=== PATIENT | male | born 1980 | race Caucasian/White ===

== ENCOUNTER 2017-01-02 19:55 | Emergency (ER) | payer SELFPAY ==
[~2017-01-02] VITALS: Ht 172.7 cm; Wt 89.0 kg
[2017-01-02 19:59] VITALS: BP 137/80; PULSE 110; RESP 16; TEMP 98.7; O2SAT 97
--- NOTE | 2017-01-02 20:47 | PD ---
Physical Exam Date Seen by Provider: Jan 02, 2017 Time Seen by Provider: 20:44 Data Data Last Documented VS Vital Signs Date Time Temp Pulse Resp B/P Pulse Ox O2 Delivery O2 Flow Rate FiO2 01/02/17 19:59 98.7 110 16 137/80 97 Room Air MDM Supervised Visit with ELLIS: No Narrative Course 36 YO M with complaint of blood in the stool x 3 days. Also complains of multiple wounds of face, arm , leg. Patients states "I think I have a staph infection." Vitals reviewed. Patient seen in triage, awaiting bed placement. Ana Coats Jan 02, 2017 20:47
[2017-01-02] MEDS ORDERED: SODIUM CHLOR 0.9% 1000 ML INJ 1,000 ML IV ONE (21:45)
--- NOTE | 2017-01-02 21:46 | PD ---
HPI Chief Complaint: Bleeding Time Seen by Provider: 21:40 Travel History International Travel<30 days: No Contact w/Intl Traveler<30days: No Traveled to known affect area: No History of Present Illness HPI The patient is a 36 year old male who presents to the [facility] emergency department with a history of reportedly not feeling well over the last week. The patient reports that a week ago he began to have a sore throat and a dry cough. The patient reports that he also noticed that he was developing 3 spots on his skin that are similar to when he had a staph skin infection in the past. He has one spot on the right posterior ankle, one on the left side of his chin , and one on the right arm. He denies him being itchy or draining. He denies having any trauma to the area. The patient additionally reports that over the last 2 days he's had blood in his stool. He reports that he's had diarrhea associated with this 2-3 times per day for the last 2 days. He reports having nausea with a subjective fever. He reports having chills. He reports having a generalized abdominal discomfort associated with this. On review of systems, the patient denies any neck pain, chest pain, shortness of breath, urinary symptoms, or neurologic symptoms. [facility] Past Medical History Narrative Medical The patient's past medical history is reportedly significant for a staph skin infection last a year ago. The patient on further questioning reports that he has been told that his liver enzymes are elevated in the past. He has not followed up regarding this. He reports that he does have a prior history of IV drug use. Medical History: Denies Significant Hx Past Surgical History Narrative Surgical The patient's past surgical history is significant for left ankle ORIF. Social History Alcohol Use: Yes (OCC) Tobacco Use: Yes (1 PPD ) Substance Use: No Allergies-Medications (Allergen,Severity, Reaction): Coded Allergies: No Known Allergies (Unverified , 01/02/17) Reported Meds & Prescriptions Reported Meds & Active Scripts Active Bactroban Topical (Mupirocin) 22 Gm Cream 1 Applic TOPICAL TID 10 Days Review of Systems Except as stated in HPI: all other systems reviewed are Neg General / Constitutional: Positive: Fever, Chills Eyes: No: Visual changes HENT: Positive: Sore Throat, Congestion, No: Headaches Cardiovascular: No: Chest Pain or Discomfort Respiratory: Positive: Cough, No: Shortness of Breath Gastrointestinal: Positive: Nausea, Diarrhea, Abdominal Pain, Hematochezia, Changes in Bowel Habits, No: Vomiting, Hematemesis, Constipation, Indigestion, Loss of Appetite Genitourinary: No: Dysuria Musculoskeletal: No: Pain Skin: Positive Rash Neurologic: No: Weakness Psychiatric: No: Depression Endocrine: No: Polydipsia Hematologic/Lymphatic: No: Easy Bruising Physical Exam Narrative General: The patient is a well-developed well-nourished male in no acute this distress. Head and Neck exam: Head is normocephalic atraumatic. Eyes: EOMI, pupils are equal round and reactive to light. Nose: Midline septum with pink mucous membranes Mouth: Dentition unremarkable. Moist mucus membranes. Posterior oropharynx is mildly erythematous. No tonsillar hypertrophy. No exudates. Uvula midline. Airway patent. Neck: No palpable lymphadenopathy. No nuchal rigidity. No thyromegaly. Cardiovascular: Sinus tachycardia in the low 100s without murmurs, gallops, or rubs. No pulse deficit to the extremities and simultaneous auscultation and palpation of his radial artery. Lungs: Clear to auscultation bilaterally. No wheezes, rhonchi, or rales. Abdomen: Soft, with reported discomfort on palpation of bilateral lower quadrants of the abdomen. No other tenderness on palpation of the other quadrants No guarding, rebound, or rigidity. Negative Martin sign. Normal bowel sounds are audible. No point tenderness over McBurney's point. Extremities: No clubbing, cyanosis, or edema. 2+ pulses in all 4 extremities. No calf tenderness on palpation. Back: No spinous process tenderness to palpation. No costovertebral angle tenderness to palpation. Neurologic Exam: Grossly nonfocal. Skin Exam: The patient has 3 areas of skin abrasion noted that is superficial without any drainage. One is along the posterior aspect of the right ankle, 1 along the lateral aspect of the right upper arm above the elbow, and another on the left side of the chin. There is no honey-colored crusting. There is no pointing, edema, or warmth on palpation. RECTAL EXAM: No masses or tenderness, stool is brown. The patient has Hemoccult positive stool. Data Data Last Documented VS Vital Signs Date Time Temp Pulse Resp B/P Pulse Ox O2 Delivery O2 Flow Rate FiO2 01/02/17 21:55 18 100 Room Air 01/02/17 19:59 98.7 110 137/80 Orders Complete Blood Count With Diff (01/02/17 21:40) Comprehensive Metabolic Panel (01/02/17 21:40) Prothrombin Time / Inr (Pt) (01/02/17 21:40) Act Partial Throm Time (Ptt) (01/02/17 21:40) C-Reactive Protein (Crp) (01/02/17 21:40) Urinalysis - C+S If Indicated (01/02/17 21:40) Magnesium (Mg) (01/02/17 21:40) Chest, Single Ap (01/02/17 21:40) Iv Access Insert/Monitor (01/02/17 21:40) Ecg Monitoring (01/02/17 21:40) Oximetry (01/02/17 21:40) Type And Screen (01/02/17 21:40) Sodium Chlor 0.9% 1000 Ml Inj (Ns 1000 M (01/02/17 21:45) Westergren Sedimentation Rate (01/02/17 21:43) Ct Abd/Pel W Iv Contrast(Rout) (01/02/17 22:47) Iohexol 350 Inj (Omnipaque 350 Inj) (01/02/17 23:25) Labs Laboratory Tests Test 01/02/17 01/02/17 21:44 21:45 White Blood Count 10.5 TH/MM3 Red Blood Count 5.14 MIL/MM3 Hemoglobin 15.0 GM/DL Hematocrit 44.8 % Mean Corpuscular Volume 87.1 FL Mean Corpuscular Hemoglobin 29.2 PG Mean Corpuscular Hemoglobin 33.5 % Concent Red Cell Distribution Width 12.6 % Platelet Count 233 TH/MM3 Mean Platelet Volume 8.2 FL Neutrophils (%) (Auto) 70.2 % Lymphocytes (%) (Auto) 21.2 % Monocytes (%) (Auto) 7.2 % Eosinophils (%) (Auto) 0.7 % Basophils (%) (Auto) 0.7 % Neutrophils # (Auto) 7.4 TH/MM3 Lymphocytes # (Auto) 2.2 TH/MM3 Monocytes # (Auto) 0.8 TH/MM3 Eosinophils # (Auto) 0.1 TH/MM3 Basophils # (Auto) 0.1 TH/MM3 CBC Comment DIFF FINAL Differential Comment Erythrocyte Sedimentation Rate 2 mm/hr Prothrombin Time 10.5 SEC Prothromb Time International 1.0 RATIO Ratio Activated Partial 27.7 SEC Thromboplast Time Sodium Level 139 MEQ/L Potassium Level 4.0 MEQ/L Chloride Level 105 MEQ/L Carbon Dioxide Level 30.0 MEQ/L Anion Gap 4 MEQ/L Blood Urea Nitrogen 15 MG/DL Creatinine 0.88 MG/DL Estimat Glomerular Filtration 99 ML/MIN Rate Random Glucose 88 MG/DL Calcium Level 8.6 MG/DL Magnesium Level 2.0 MG/DL Total Bilirubin 0.5 MG/DL Aspartate Amino Transf 51 U/L (AST/SGOT) Alanine Aminotransferase 85 U/L (ALT/SGPT) Alkaline Phosphatase 84 U/L C-Reactive Protein 0.64 MG/DL Total Protein 7.7 GM/DL Albumin 4.1 GM/DL Blood Type O POSITIVE Antibody Screen NEGATIVE Blood Bank Comment Urine Color YELLOW Urine Turbidity CLEAR Urine pH 6.5 Urine Specific [place] 1.013 Urine Protein NEG mg/dL Urine Glucose (UA) NEG mg/dL Urine Ketones NEG mg/dL Urine Occult Blood NEG Urine Nitrite NEG Urine Bilirubin NEG Urine Urobilinogen LESS THAN 2.0 MG/DL Urine Leukocyte Esterase NEG Urine Mucus FEW /lpf Microscopic Urinalysis Comment CULT NOT INDICATED MDM Medical Decision Making Medical Screen Exam Complete: Yes Emergency Medical Condition: Yes Medical Record Reviewed: Yes Interpretation(s) Last Impressions Abdomen/Pelvis CT 01/02/177 Signed Impressions: Service Date/Time: Monday, January 02, 2017 23:24 - CONCLUSION: 1. No acute inflammatory process. 2. Punctate nonobstructing upper pole left renal calculus. 3. No abdominal free air or free fluid. Julius Alejandre MD Chest X-Ray 01/02/170 Signed Impressions: Service Date/Time: Monday, January 02, 2017 22:01 - CONCLUSION: No acute disease. John Paul Wellington MD Differential Diagnosis Staph skin infection, versus anal fissure, versus hemorrhoid, versus colitis, versus diverticulosis, versus diverticulitis, versus AVM malformation versus inflammatory bowel disease Narrative Course During the course of the patients emergency department visit, the patients history, examination, and differential diagnosis were reviewed with the patient. The patient had IV access obtained and blood work sent for analysis. The patient was placed on a patient monitor with oximetry and blood pressure monitoring. The patient was initially provided normal saline 1 L IV fluid bolus. The patients laboratory studies were reviewed and remarkable for a white count of 10.5, hemoglobin 15, platelets 233 with neutrophils 70.2, sedimentation rate is 2 decreasing likelihood of an inflammatory bowel disease, CMP is remarkable for an AST of 51, ALT 85, C-reactive protein 0.64, PT PTT within normal limits. Urinalysis is unremarkable. Radiology studies were reviewed and remarkable for a chest x-ray that shows no acute abdomen on a. CT scan of the abdomen and pelvis shows no acute abnormality. A punctate nonobstructing upper pole left renal calculus is noted. The patient was instructed regarding his elevated liver enzymes. He has been told that they were elevated in the past, however he did not follow up regarding this. He reports that he does have a history of IV drug use. The patient was made aware that the elevated liver enzymes could be related to a viral hepatitis. He is given an outpatient lab slip to obtain a viral hepatitis panel. Additionally, the patient on rectal examination is noted to have some blood in his stool on Hemoccult testing. The patient will be given an outpatient lab slip for stool studies. The patient is given follow-up with Dr. Walsh regarding both of these issues. The patient will be given a mandatory follow-up in the system as he is uninsured. Regarding the patient's superficial skin infection, the lesions appear consistent with impetigo. The patient was given a perception for Bactroban at discharge. The patient is resting comfortably and feels better, is alert and in no distress. The patients results and examination findings were discussed with the patient. The repeat examination is unremarkable and benign. The history, exam, diagnostic testing, and current condition do not suggest any significant pathology to warrant further testing, continued ED treatment, admission, or surgical evaluation at this point. The vital signs have been stable. The patient does not have uncontrollable pain, intractable vomiting, or other significant symptoms. The patient's condition is stable and appropriate for discharge. The patient will pursue further outpatient evaluation with a primary care physician or other designated or consulting physician as indicated in the discharge instructions. The patient expressed understanding and was agreeable with this plan. [facility] Point of Care Internal Pos. & Neg. Controls: Passed Fecal Specimen Occult Blood: Positive Diagnosis Primary Impression: Bacterial infection of skin Additional Impressions: Rectal bleeding Elevated liver enzymes Referrals: Akua Walsh MD 1 week Primary Care Physician 2 days Patient Instructions: Acute Diarrhea (ED), General Instructions, Impetigo (ED) Additional Instructions: Follow-up for viral hepatitis testing due to year elevated liver enzymes. The patient is given an outpatient lab slip to complete this along with stool studies. Scripts Mupirocin Topical (Bactroban Topical)22 Gm Cream1 Applic TOPICAL TID 10 Days Ref 0 Prov:Roseanna Sanchez MD 01/02/17 Disposition: 01 DISCHARGE HOME Condition: Stable Roseanna Sanchez MD Jan 02, 2017 21:46
[2017-01-02 21:55] VITALS: RESP 18; O2SAT 100
[2017-01-02 22:09] LABS: AUTOMATED NEUTROPHIL # 7.4 TH/MM3 (1.8-7.7); BASOPHIL # 0.1 TH/MM3 (0-0.2); BASOPHIL % 0.7 % (0.0-2.0); EOSINOPHIL # 0.1 TH/MM3 (0-0.4); EOSINOPHIL % 0.7 % (0.0-4.0); HEMATOCRIT 44.8 % (39.0-51.0); HEMO FLAGS DIFF FINAL; LYMPH % 21.2 % (9.0-44.0); LYMPHOCYTE # 2.2 TH/MM3 (1.0-4.8); MEAN CELL VOLUME 87.1 FL (80.0-100.0); MEAN CORPUSCULAR HEMOGLOBIN 29.2 PG (27.0-34.0); MEAN CORPUSCULAR HGB CONC 33.5 % (32.0-36.0); MONO % 7.2 % (0.0-8.0); NEUT % 70.2 % (16.0-70.0); PLATELET COUNT 233 TH/MM3 (150-450); RED BLOOD COUNT 5.14 MIL/MM3 (4.50-5.90); RED CELL DISTRIBUTION WIDTH 12.6 % (11.6-17.2); WHITE BLOOD COUNT 10.5 TH/MM3 (4.0-11.0)
[2017-01-02 22:12] LABS: BLOOD, URINE NEG (NEG); COMMENT (UR) CULT NOT INDICATED; CULTURE IF INDICATED CULT NOT INDICATED; GLUCOSE,URINE NEG (NEG); KETONE, URINE NEG (NEG); MUCUS URINE FEW /lpf (OCC); NITRITE,URINE NEG (NEG); PH, URINE 6.5 (5.0-8.5); URINE COLOR YELLOW (YELLW/STRAW)
--- NOTE | 2017-01-02 22:16 | RADRPT ---
EXAM DATE/TIME: 01/02/2017 22:01 [facility] COMPARISON: No previous studies available for comparison. INDICATIONS : Chest pain. MEDICAL HISTORY : None. SURGICAL HISTORY : None. ENCOUNTER: Initial ACUITY: 1 day PAIN SCORE: 0/10 LOCATION: Bilateral chest FINDINGS: A single view of the chest demonstrates the lungs to be symmetrically aerated without evidence of mas s, infiltrate or effusion. The cardiomediastinal contours are unremarkable. Osseous structures are intact. CONCLUSION: No acute disease. John Paul Wellington MD on January 02, 2017 at 22:14 Board Certified Radiologist. This report was verified electronically.
[2017-01-02 22:18] LABS: APTT (PATIENT) 27.7 SEC (24.3-30.1); PROTHROMBIN TIME - PATIENT 10.5 SEC (9.8-11.6)
[2017-01-02 22:25] LABS: ANION GAP 4 MEQ/L (5-15); AST (GOT) 51 U/L (15-37); BLOOD UREA NITROGEN 15 MG/DL (7-18); CHLORIDE 105 MEQ/L (98-107); GLOMERULAR FILTRATION RATE 99 ML/MIN (>89); SODIUM (NA) 139 MEQ/L (136-145)
[2017-01-02 22:26] LABS: ALT (GPT) 85 U/L (12-78)
[2017-01-02 22:28] LABS: ALKALINE PHOSPHATASE 84 U/L (45-117); TOTAL BILIRUBIN ADULT 0.5 MG/DL (0.2-1.0)
[2017-01-02] MEDS ORDERED: IOHEXOL 350 MG/ML 10 ML VIAL (for RAD DIAG) IV ONE (23:25)
--- NOTE | 2017-01-02 23:39 | RADRPT ---
EXAM DATE/TIME: 01/02/2017 23:24 [facility] COMPARISON: No previous studies available for comparison. INDICATIONS : Blood in stool and abdominal pain X one week. IV CONTRAST: 96 cc Omnipaque 350 (iohexol) IV ORAL CONTRAST: No oral contrast ingested. RADIATION DOSE: 9.10 CTDIvol (mGy) MEDICAL HISTORY : None SURGICAL HISTORY : ankle surgery ENCOUNTER: Initial ACUITY: 1 day PAIN SCALE: 3/10 LOCATION: abdomen TECHNIQUE: Volumetric scanning of the abdomen and pelvis was performed. Using automated exposure control and ad justment of the mA and/or kV according to patient size, radiation dose was kept as low as reasonably achievable to obtain optimal diagnostic quality images. DICOM format image data is available electro nically for review and comparison. FINDINGS: LOWER LUNGS: The visualized lower lungs are clear. LIVER: Homogeneous density without lesion. There is no dilation of the biliary tree. No calcified gallston es. SPLEEN: Normal size without lesion. PANCREAS: Within normal limits. KIDNEYS: Normal in size and shape. There is no mass, stone or hydronephrosis on the right. 2 mm calculus uppe r pole left kidney. ADRENAL GLANDS: Within normal limits. VASCULAR: There is no aortic aneurysm. BOWEL/MESENTERY: The stomach, small bowel, and colon demonstrate no acute abnormality. There is no free intraperitone al air or fluid. ABDOMINAL WALL: Within normal limits. RETROPERITONEUM: There is no lymphadenopathy. BLADDER: No wall thickening or mass. REPRODUCTIVE: Within normal limits. INGUINAL: There is no lymphadenopathy or hernia. MUSCULOSKELETAL: Within normal limits for patient age. CONCLUSION: 1. No acute inflammatory process. 2. Punctate nonobstructing upper pole left renal calculus. 3. No abdominal free air or free fluid. Julius Alejandre MD on January 02, 2017 at 23:35 Board Certified Radiologist. This report was verified electronically.
[2017-01-02] MEDS ORDERED: MUPI2%T TOPICAL (23:45)
== END 2017-01-03 00:09 | disposition home or self-care (01) ==
LOC: NEPC 19:55
DX: L08.9 Local infection of the skin and subcutaneous tissue, unspecified (principal); K62.5 Hemorrhage of anus and rectum; R74.8 Abnormal levels of other serum enzymes; N20.0 Calculus of kidney; R50.9 Fever, unspecified; R11.0 Nausea; R05 Cough; R00.0 Tachycardia, unspecified
CPT/HCPCS: 71010; 74177; 80053; 81001; 83735; 85025; 85610; 85652; 85730; 86140; 86850; 86900; 86901; 96360; 99285; J7030; Q9967